=== PATIENT | female | born 1965 | race Caucasian/White ===

== ENCOUNTER 2016-11-24 21:01 | Emergency (ER) | payer MEDICARE, OTHER ==
[2016-11-24] MEDS ORDERED: AMOXICILLIN TRIHYDRATE 250 MG CAPSULE PO ONE (22:09)
[2016-11-24] MEDS ORDERED: AMOXICILLIN TRIHYDRATE 250 MG CAPSULE ONE (22:12)
--- OUTSIDE RECORDS SUMMARY | 2016-11-24 22:20 | XMS REPORT | Continuity of Care Document ---
:1965 Author Organization [facility] ([facility]) Address [address] [place] [address] Phone [phone] Care Team Providers Name Role Phone Vero Patterson Primary Care Provider [phone] Source Comments This disclosure is being made pursuant to the Care Everywhere program, applicable federal and state laws, and may not contain all informaitonavailable regarding this patient.[facility] ([facility]) Active Allergies and Adverse Reactions No Known Allergies Current Medications Prescription Sig. Disp. Refills Start End Status Date Date oxybutynin 5 mg tablet Take 5 mg by mouth 1 10/03/19 Active 2 times daily. 17 hydroCHLOROthiazide 25 Take 25 mg by 3 10/03/19 Active mg tablet mouth daily. 17 metFORMIN 500 mg tablet TAKE ONE-HALF 3 10/20/19 Active TABLET BY MOUTH 17 TWICE A DAY WITH MORNING AND EVENING MEALS, ALONG WITH 1000MG TABLET, FOR A TOTAL OF 1250MG TWO TIMES A DAY levothyroxine 175 mcg Take 175 mcg by 3 10/03/19 Active tablet mouth daily. 17 metFORMIN 1,000 mg Take 1,000 mg by 10/03/19 Active tablet mouth 2 times 17 daily. diltiaZEM 60 mg tablet Take 60 mg by 10/03/19 Active mouth 3 times 17 daily. lisinopril 40 mg tablet Take 40 mg by 3 10/20/19 Active mouth 2 times 17 daily. NOVOLOG FLEXPEN 100 INJECT 15 UNITS 09/25/19 Active unit/mL (3 mL) SUBCUTANEOUSLY 17 injection pen BEFORE MEALS PLUS PER SLIDING SCALE; 151-200 ADD 1U, 201-250 ADD 2U, 251-300 ADD 3U, 301-350 ADD 4U, 351-4 LEVEMIR FLEXTOUCH 100 INJECT 65 UNITS 09/26/19 Active unit/mL (3 mL) UNDER THE SKIN IN 17 injection pen THE EVENING omega-3 fatty acids 1 Take 2 g by mouth Active gram capsule 2 times daily. MULTIVIT WITH Active MINERALS/LUTEIN (MULTIVITAMIN 50 PLUS PO) aspirin EC 500 mg Take 500 mg by Active tablet mouth every 6 hours as needed. albuterol 2.5 mg/3 mL Use 3 mL by Active inhalation solution inhalation every 4 hours as needed. atorvastatin 20 mg Take 20 mg by Active tablet mouth every evening. SUPPLY lancets Take 1 Units as 200 Each 11 10/23/19 Active directed 4 times 17 daily. Insulin Dependent SUPPLY lancet device Use as directed 1 Each 0 10/23/19 Active for blood glucose 17 monitoring. SUPPLY ONE TOUCH ULTRA 1 Strip 4 times 150 11 10/23/19 Active test strips daily. Insulin Strip 17 Dependent SUPPLY BD insulin UF 5 times daily. To 200 Each 11/14/19 Active short 31 X 8 MM pen use with humalog 17 needle and levemir. SUPPLY BD insulin UF DIRECTED ONCE 3 10/19/19 Discontinued short 31 X 8 MM pen DAILY WITH LEVEMIR 17 017 needle FLEX TOUGH PEN DX250.00 Active Problems Problem Noted Date Morbid obesity 10/22/2016 Most Recent Encounters Date Type Specialty Providers Description 11/13/2016 Telephone Diabetes Services Sarah Ohara, Chief Comp: Follow-up RN 11/13/2016 Refill Diabetes Services Lurdes Fajardo, Dx: Type 2 diabetes PA-C mellitus with hyperglycemia, with long-term current use of insulin (Primary Dx) 11/05/2016 Telephone Diabetes Services Lurdes Fajardo, Chief Comp: Follow-up PA-C 10/22/2016 Office Visit Diabetes Services Kali Romero MD Dx: Type 2 diabetes mellitus with hyperglycemia, with long-term current use of insulin 10/22/2016 Office Visit Diabetes Services Default, Other Billg Dx: Diabetes mellitus - Defo type [address] LD (Primary Dx) 10/22/2016 Office Visit Diabetes Services Default, Other Billg Dx: Type 2 diabetes - Defo mellitus with Kali Romero MD hyperglycemia, with Lurdes Fajardo, long-term current use PA-C of insulin (Primary Dx) 10/22/2016 Refill Diabetes Services Lurdes Fajardo, Dx: Type 2 diabetes PA-C mellitus with hyperglycemia, with long-term current use of insulin (Primary Dx) 09/26/2016 Office Visit Diabetes Services Default, Other Billg Chief Comp: Patient - Defo Reported Reason For Miriam Prajapati, Visit RD LD 09/26/2016 Office Visit Diabetes Services Default, Other Billg Chief Comp: Patient - Defo Reported Reason For Lurdes Fajardo, Visit PA-C Social History Tobacco Use Types Packs/Day Years Used Date Never Smoker Smokeless Tobacco: Never Used Alcohol Use Drinks/Week oz/Week Comments No Last Filed Vital Signs Vital Sign Reading Time Taken Blood Pressure 163/88 10/22/2016 1:03 PM CDT Pulse 93 10/22/2016 1:03 PM CDT Temperature - - Respiratory Rate - - Height 1.659 m (5' 5.3") 10/22/2016 1:03 PM CDT Weight 116.3 kg (256 lb 6.3 oz) 10/22/2016 1:03 PM CDT Body Mass Index 42.26 10/22/2016 1:03 PM CDT Oxygen Saturation - - Plan of Care Date Type Specialty Providers Description 12/24/2016 Appointment Diabetes Services Kali Romero MD [address] [place] [address] [phone] (Fax) Chief Comp: Patient Lurdes Fajardo PA-C [address] [place] [address] [phone] (Fax) Reported Reason For Visit Health Maintenance Due Date Last Done Comments Hepatitis B Vaccine (1 of 3 - Primary Series) 1965 Tdap Vaccine 1977 DIABETIC: Cholesterol 1984 Diabetic: Hdl 1984 DIABETIC: Hemoglobin A1C 1984 Diabetic: Ldl 1984 DIABETIC: Triglycerides 1984 MMR Vaccine 1984 Td Vaccine 1984 Pneumococcal Vaccine (1 of 1 - PPSV23) 1985 Cervical Cancer Screening 1996 Mammogram 2006 DIABETIC: Retinal Eye Exam 10/22/2016 Colonoscopy 11/05/2016 Influenza Vaccine: Seasonal (Season Ended) 2017 DIABETIC: Foot Exam 10/22/2017 10/22/2016 DIABETIC: Microalbumin 10/22/2017 10/22/2016 Procedures from Last 3 Months Procedure Name Priority Date/Time Associated Diagnosis Comments HEALTH MAINTENANCE Routine 10/22/2016 1:55 PM DIABETIC FOOT EXAM CDT Results from Last 3 Months MICROALBUMIN, URINE RANDOM (10/22/2016 2:44 PM) Component Value Range Microalbumin Calculation 301.6(H) 0.0-19.9 g/mg Creatinine, Urine, Random 75.5 mg/dL Specimen Urine
--- NOTE | 2016-11-24 22:27 | ERNOTE ---
ENT HPI Date of Service: 11/24/16 Presenting Symptoms: other - sore throat Time Seen by Provider: 11/24/16 22:05 Source: patient Exam Limitations: no limitations - Immun/Allergies/Home Medications Immunizations: IMMUNIZATION HX Immunizations Up to Date Yes History of Influenza Vaccine No Hx Pneumococcal Vaccination No Allergies/Adverse Reactions: Allergies Allergy/AdvReac Type Severity Reaction Status Date / Time No Known Allergies Allergy Verified 11/24/16 21:27 Home Medications: HOME MEDICATIONS Diltiazem HCl [Cardizem] 1 tab PO TID 02/05/14 [Last Taken 02/05/14] Levothyroxine Sodium [Synthroid] 150 mcg PO DAILY 02/05/14 [Last Taken 02/05/14] Lisinopril [Zestril] 90 mg PO BID 02/05/14 [Last Taken 02/05/14] [place]-3 Fatty Acids/Fish Oil [Fish Oil 1,200 mg Softgel] 2 cap PO DAILY [Last Taken 02/05/14] metFORMIN HCL [Glucophage] 1,000 mg PO BIDWM 02/05/14 [Last Taken 02/05/14] Ibuprofen [Motrin] 400 mg PO Q6H PRN 07/31/14 [Last Taken Unknown] Multivitamin [Multi Vitamin Daily] 1 each PO DAILY 07/31/14 [Last Taken Unknown] Amoxicillin Trihydrate [Amoxil] 500 mg PO Q12H #20 cap 11/24/16 [Last Taken Unknown] Insulin Aspart [Novolog Flexpen] 16 unit SQ AC 11/24/16 [Last Taken Unknown] Insulin Detemir [Levemir] 35 units SC BID 11/24/16 [Last Taken Unknown] - History of Present Illness Narrative: 51-year-old female presents to the emergency room for sore throat. Patient states she's had a sore throat for over a week she's been exposed to strep throat by taking care of her grandchildren. Date (Duration): 11/24/16 Severity: Present: mild ENT Location: Present: throat Prearrival Treatment: Present: no prearrival treatment Modifying Factors - Improves: Reports: nothing Modifying Factors - Worsens: Reports: nothing Associated Symptoms - ENT: Reports: poor fluid intake, sore throat. Denies: fever, cough, nasal congestion/drainage, jaw swelling, headache Review of Systems - Narrative Narrative: sore throat, exposed to strep via grandchildren - Review of Systems Constitutional: Present: See HPI, weakness EYE: Present: no symptoms reported ENT: Present: no symptoms reported Respiratory: Present: no symptoms reported Cardiology: Present: no symptoms reported Gastrointestinal/Abdominal: Present: See HPI, drinking less Genitourinary: Present: no symptoms reported Musculoskeletal: Present: no symptoms reported Skin: Present: no symptoms reported Neurological: Present: no symptoms reported Endocrine: Present: no symptoms reported Hematologic/Lymphatic: Present: swollen glands Psych: Present: no symptoms reported - Patient's Past Medical History Patient History - Medical: Diabetes Type 2, Hypothyroidism, Obesity Patient History - Cardiac/Respiratory: Hypertension, Hyperlipidemia Patient History - Cancer: No Hx of Cancer Patient History - Surgical Procedures: D & C Patient History - Other: None - Social History Living Situations: home Abuse History: No History of abuse Psych History: No pertinent hx Smoking Status: Never smoker Alcohol Use: none Drug Use: none - Immunizations Immunizations Up to Date: Yes Hx Pneumococcal Vaccination: No History of Influenza Vaccine: No Physical Exam - Physical Exam Narrative: patients throat is bright red, with a cobble stone pattern. General Appearance: Present: wd/wn, alert, no apparent distress Eye Exam: Normal inspection: bilateral Ears, Nose, Throat: Present: normal except -, pharyngeal erythema, pharyngeal swelling Neck: Present: nontender, full range of motion, lymphadenopathy (R), lymphadenopathy (L) Respiratory: Present: no respiratory distress, normal breath sounds, no accessory muscle use, chest nontender, lungs clear Cardiovascular/Chest: Present: regular rate, rhythm, no murmur, normal peripheral pulses Gastrointestinal/Abdominal: Present: normal bowel sounds, nontender, soft Back Exam: Present: normal inspection, normal range of motion, no CVA tenderness Extremity Exam: Present: normal inspection, normal range of motion, no edema Neurological Exam: Present: alert, oriented, normal mood/affect, no motor/ sensory deficits Skin Exam: Present: normal color, warm/dry Lymphatic Exam: Present: no adenopathy ED Progress - Results and Orders Patient's Lab Results:: I have reviewed the patient's lab results. Results and Orders: positive strep - Vital Signs Vital Signs: Vital Signs 11/24/16 21:20 Temperature 37.4 C Pulse Rate 84 Respiratory 20 Rate Blood Pressure 165/87 O2 Sat by Pulse 96 Oximetry - Progress/Reassessment Chief Complaint: Sore Throat Progress:: Improved Departure Clinical Impression: Strep pharyngitis - Departure Disposition: Home Follow Up Needed Condition: Stable Instructions: Strep Throat, [id number] Additional Instructions: Continue any previous home medications as directed. Take antibiotics until they are finished. Follow up with the primary care in the next 2-3 days if needed. Return to the emergency room if symptoms continue. You may take over- the-counter pain medication as needed for pain. Referrals: Vero Patterson MD [Primary Care Provider] - Prescriptions: Amoxicillin Trihydrate [Amoxil] 500 mg PO Q12H #20 cap
[2016-11-25 01:56] VITALS: BP 172/70
== END 2016-11-24 23:25 | disposition home or self-care (01) ==
LOC: ER 21:01
DX: J02.0 Streptococcal pharyngitis (principal); E11.9 Type 2 diabetes mellitus without complications; E03.9 Hypothyroidism, unspecified; I10 Essential (primary) hypertension; E78.5 Hyperlipidemia, unspecified

== ENCOUNTER 2017-01-09 15:38 | Emergency (ER) | payer MEDICARE, BC, OTHER ==
[2017-01-09] MEDS ORDERED: ORPHENADRINE CITRATE 30 MG/ML VIAL IM ONE (16:06)
[2017-01-09 16:19] LABS: Urine Bilirubin Negative (NEGATIVE); Urine Blood Negative /ul (NEGATIVE); Urine Ketone Negative (NEGATIVE); Urine Nitrite Negative (NEGATIVE); Urine Protein 15 mg/dL (NEGATIVE); Urine Specific Gravity 1.015 SP.GR. (1.005-1.010); Urine Urobilinogen Normal (NORMAL); Urine pH 7.5 pH (5.0-7.0)
[2017-01-09 16:22] LABS: Hematocrit 37.5 % (37.0-47.0); Hemoglobin 11.9 gm/dL (12.5-16.0); Mean Cell Volume 80.1 fl (78-100); Mean Corpuscular Hemoglobin 25.4 pg (27-31); Mean Corpuscular Hgb Conc 31.7 g/dl (32-36); Mean Platelet Volume 9.1 fl (6.0-9.5); Neutrophil # 8.4 K/mm3 (1.3-6.0); Neutrophil % 65.3 % (42-75.0); Platelet Count 325 K/mm3 (150-450); Red Blood Count 4.68 M/mm3 (4.2-5.4); Red Cell Distribution Width 14.9 % (11.5-14.0); White Blood Count 12.9 K/mm3 (4.0-10.5)
[2017-01-09 16:28] LABS: Urine Appearance Clear; Urine Bacteria TRACE; Urine Color Yellow; Urine RBC None Seen /hpf (0-5)
[2017-01-09 16:40] LABS: Albumin * 3.3 gm/dl (3.4-5.0); BUN/Creatinine Ratio 14.1 (9.0-21.6); Bilirubin, Total 0.4 mg/dL (0.0-1.1); Calcium * 8.8 mg/dL (7.9-10.9); Carbon Dioxide 31.8 mmol/L (24-32.6); Potassium 3.8 mmol/L (3.4-4.6); Total Protein 7.4 gm/dL (6.2-8.2)
[2017-01-09 18:07] VITALS: BP 156/90
--- NOTE | 2017-01-09 18:09 | ERNOTE ---
Back Pain ER HPI Date of Service: 01/09/17 Time Seen by Provider: 01/09/17 16:00 Source: patient Exam Limitations: no limitations Immunizations: IMMUNIZATION HX Immunizations Up to Date Yes History of Influenza Vaccine No Hx Pneumococcal Vaccination No Allergies/Adverse Reactions: Allergies No Known Allergies Allergy (Verified 01/09/17 15:52) Home Medications: HOME MEDICATIONS Levothyroxine Sodium [Synthroid] 175 mcg PO DAILY 02/05/14 [Last Taken 02/05/14] Lisinopril [Zestril] 40 mg PO BID 02/05/14 [Last Taken 02/05/14] [place]-3 Fatty Acids/Fish Oil [Fish Oil 1,200 mg Softgel] 2 cap PO DAILY [Last Taken 02/05/14] metFORMIN HCL [Glucophage] 1,000 mg PO BIDWM 02/05/14 [Last Taken 02/05/14] Multivitamin [Multi Vitamin Daily] 1 each PO DAILY 07/31/14 [Last Taken Unknown] Insulin Aspart [Novolog Flexpen] 16 unit SQ AC 11/24/16 [Last Taken Unknown] Aspirin 81 mg PO DAILY 01/09/17 [Last Taken Unknown] Atorvastatin Calcium 20 mg PO HS 01/09/17 [Last Taken Unknown] Cefuroxime Axetil [Ceftin] 250 mg PO Q12H #20 tab 01/09/17 [Last Taken Unknown] Cyclobenzaprine HCl [Flexeril] 10 mg PO TID PRN #20 tab 01/09/17 [Last Taken Unknown] Diltiazem HCl [Cardizem] 60 mg PO TID 01/09/17 [Last Taken Unknown] Hydrochlorothiazide [Hydrodiuril] 25 mg PO DAILY 01/09/17 [Last Taken Unknown] Oxybutynin Chloride [Ditropan] 5 mg PO BID 01/09/17 [Last Taken Unknown] Narrative: patient presents to the ED for right flank pain. She relates that this has been coming off and on for 3 months. it has been approx 1 time per month but then was becoming more frequent. has been constant for 3 days or so. No trauma. Has not seen anyone else for it. Right flank only. No focal N/T/W. No radicualr Sx. No trauma. No loss of bowel or bladder control. No fever or vomiting. No urinary Sx. No abdominal pain. Worse with movement and palpation but not breathing. No SOB or CP. Timing: Reports: intermittent Quality/Severity: Reports: moderate Location of pain: Reports: other - right flank Activities at Onset: Reports: none Recent Injury?: Reports: no Modifying Factors - (Improves): Reports: other - rest Modifying Factors - (Worsens): Reports: other - movement. Denies: cough/deep breaths Associated Symptoms: Denies: fever/chills, constipation/incontinence, nausea/ vomiting, problems urinating, difficulty walking, numbess/weakness in legs Prior Treament: Denies: recently seen Review of Systems - Review of Systems Constitutional: Absent: fever Respiratory: Absent: shortness of breath Cardiology: Absent: chest pain Gastrointestinal/Abdominal: Absent: vomiting, abdominal pain Genitourinary: Absent: dysuria Musculoskeletal: Present: See HPI Skin: Absent: rash Neurological: Absent: weakness - Patient's Past Medical History Patient History - Medical: Diabetes Type 2, Hypothyroidism, Obesity Patient History - Cardiac/Respiratory: Hypertension, Hyperlipidemia Patient History - Cancer: No Hx of Cancer Patient History - Surgical Procedures: D & C Patient History - Other: None LMP (females 10-50): other - Social History Living Situations: home Abuse History: No History of abuse Psych History: No pertinent hx Alcohol Use: none Drug Use: none - Immunizations Immunizations Up to Date: Yes Hx Pneumococcal Vaccination: No History of Influenza Vaccine: No Physical Exam - Physical Exam General Appearance: Present: alert, no apparent distress Head Exam: Present: normal inspection, no evidence of injury Eye Exam: Normal inspection: bilateral, PERRL: bilateral Ears, Nose, Throat: Present: normal ENT inspection Neck: Present: normal inspection Respiratory: Present: no respiratory distress, normal breath sounds, no accessory muscle use, lungs clear Cardiovascular/Chest: Present: regular rate, rhythm, normal peripheral pulses Gastrointestinal/Abdominal: Present: normal bowel sounds, nontender, soft. Absent: tenderness Back Exam: Present: normal inspection, normal range of motion, no vertebral tenderness, CVA tenderness (R), other - palpation of musculature right flank area completely reproduces her pain. Clinically this is muscular by exam. 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 Patellar tendon reflexes equal and symetric. Dorsi and plantar flexion strngth full. Sensation intact. No focal neuro deficits. Neuro intact. No cauda equina syndrome. Skin Exam: Present: normal color, warm/dry. Absent: skin rash ED Progress - Results and Orders Patient's Lab Results:: I have reviewed the patient's lab results. - Vital Signs Patient's Vital Signs:: I have reviewed the patient's vital signs. Vital Signs: Vital Signs 01/09/17 01/09/17 01/09/17 15:47 16:29 16:50 Temperature 36.8 C Pulse Rate 77 79 82 Respiratory 16 16 Rate Blood Pressure 177/88 182/83 166/88 O2 Sat by Pulse 98 98 99 Oximetry 01/09/17 17:17 Temperature Pulse Rate 84 Respiratory Rate Blood Pressure 187/92 O2 Sat by Pulse 99 Oximetry - CT/Ultrasound CT/Ultrasound Narrative: I reviewed CT report per radiology - Progress/Reassessment Chief Complaint: Back Pain Progress Note-Subjective: 01/09/17 18:07 Clinically muscular without neuro deficits. Nothing to suggest cauda equina syndrome. Mild UTI but without kidney stone. Treat with ABx and muscle relaxants. I disucssed with her CT results and need for close f/u for additional testing. She clearly understands this. She feels like going home. I discussed warning signs and reasons to return as well as the need for close f/ u. Departure Clinical Impression: Right flank pain, UTI (urinary tract infection) - Departure Disposition: Home self-care Condition: Stable Instructions: Urinary Tract Infection, Adult, [id number] Additional Instructions: Rest. Fluids. You have findings on your CT that require follow-up. Please see your doctor within 5 days for a re-check and to discuss further testing. Return for fever, vomiting, increased pain or if your condition worsens or changes in any way. Referrals: Vero Patterson MD [Primary Care Provider] - Prescriptions: Cefuroxime Axetil [Ceftin] 250 mg PO Q12H #20 tab Cyclobenzaprine HCl [Flexeril] 10 mg PO TID PRN #20 tab PRN Reason: MUSCLE SPASMS
== END 2017-01-09 18:06 | disposition home or self-care (01) ==
LOC: ER 15:38
DX: N39.0 Urinary tract infection, site not specified (principal); R10.9 Unspecified abdominal pain; E03.9 Hypothyroidism, unspecified; E11.9 Type 2 diabetes mellitus without complications; Z79.4 Long term (current) use of insulin; E78.5 Hyperlipidemia, unspecified; I10 Essential (primary) hypertension